=== PATIENT | male | born 1970 | race Two or more races ===

== ENCOUNTER 2023-03-24 05:46 | Inpatient (IN) | payer MEDICAID ==
[~2023-03-24] VITALS: Ht 165.1 cm; Wt 91.6 kg
[2023-03-24] MEDS: KETOROLAC TROMETH 60MG/2ML VIAL IM ONE (06:14)
[2023-03-24 07:22] LABS: Basophils # (auto) 0 10 ^3/uL (0-0.2); Basophils % (auto) 0.3 % (0.0-2.0); Eosinophils # (auto) 0.1 10 ^3/uL (0-0.8); Eosinophils % (auto) 1.7 % (0.0-7.0); Hematocrit 43.7 % (41.0-53.0); Hemoglobin 14.7 g/dL (13.5-17.5); Lymphocytes # (auto) 2.2 10 ^3/uL (0.4-5.4); Lymphocytes % (auto) 26.8 % (10.0-50.0); Mean Corpuscular Hgb Conc. 33.7 g/dL (32.0-36.0); Monocytes # (auto) 0.5 10 ^3/uL (0-1.3); Monocytes % (auto) 6.1 % (0.0-12.0); Neutrophils # (auto) 5.4 10 ^3/uL (1.6-8.6); Neutrophils % (auto) 65.1 % (37.0-80.0); Nucleated Red Blood Cells % 0.2 %; Red Blood Cells 4.46 10^6/uL (4.5-5.90); Red Cell Distribution Width 13.4 % (11.8-14.3); White Blood Cell 8.3 10^3/uL (4.4-10.8)
[2023-03-24 07:30] LABS: Alanine Aminotransferase 41 U/L (7-40); Albumin 4.2 g/dL (3.2-4.8); Alkaline Phosphatase 54 U/L (46-116); Anion Gap 9 (5-15); Aspartate Aminotransferase 21 U/L (13-40); BUN/Creatinine Ratio 8.9 (10.0-20.0); Blood Urea Nitrogen 8 mg/dL (9-23); Carbon Dioxide 23 mmol/L (20-30); Chloride 107 mmol/L (98-107); Glucose 209 mg/dL (74-106); Potassium 3.5 mmol/L (3.5-5.1); Sodium 139 mmol/L (136-145)
[2023-03-24 07:31] LABS: Bilirubin, Total 0.6 mg/dL (0.2-1.0); Total Protein 7.5 g/dL (5.7-8.2)
[2023-03-24 08:29] LABS: Urine Bacteria NONE SEEN /hpf (None Seen); Urine Blood 3+ /uL (Negative); Urine Clarity Clear (Clear); Urine Color Yellow (Yellow); Urine Hyaline Cast FEW /lpf (0 - 2); Urine Mucus FEW (None Seen); Urine Protein, UAD 1+ (Negative); Urine Specific Gravity 1.024 (1.001-1.035); Urine Urobilinogen Normal (Negative); Urine WBC 7 /hpf (0 - 3); Urine pH 5.5 (5.0-8.0)
[2023-03-24] MEDS: SODIUM CHLORIDE 0.9% 1,000 ML IV ONE ×2 (08:41→08:43)
[2023-03-24] MEDS: TAMSULOSIN HYDROCHLORIDE 0.4 MG CAP PO ONE (08:49)
[2023-03-24] MEDS: FUROSEMIDE 40 MG/4 ML VIAL IV ONE (09:10)
[2023-03-24] MEDS ORDERED: DEXTROSE (50%) 50ML SYRG IV PRN (10:30)
[2023-03-24] MEDS ORDERED: DOCUSATE SOD 100 MG CAP PO PRN (10:30)
[2023-03-24] MEDS ORDERED: KETOROLAC TROMETH 30 MG/ML 1ML VIAL IV PRN (10:30)
[2023-03-24 10:46] LABS: Hemoglobin 14.9 g/dL (13.5-17.5)
[2023-03-24] MEDS: SODIUM CHLORIDE 0.9% 1,000 ML IV SCH (10:50)
[2023-03-24] MEDS: ACCU-CHEK COMFORT CURVE STRIP VI SCH (11:32)
[2023-03-24] MEDS: InsuLIN REG 1unit/0.01ml Soln (100units/ml) SC SCH ×2 (11:34→22:00)
[2023-03-24] MEDS: cefTRIAXone 1GM/50ML D5W 50 ML IV ONE (14:19)
[2023-03-24] MEDS: TAMSULOSIN HYDROCHLORIDE 0.4 MG CAP PO SCH (18:03)
[2023-03-25 07:23] LABS: Basophils # (auto) 0 10 ^3/uL (0-0.2); Basophils % (auto) 0.4 % (0.0-2.0); Eosinophils # (auto) 0.1 10 ^3/uL (0-0.8); Eosinophils % (auto) 1.9 % (0.0-7.0); Hematocrit 39.8 % (41.0-53.0); Hemoglobin 13.5 g/dL (13.5-17.5); Lymphocytes # (auto) 2.3 10 ^3/uL (0.4-5.4); Lymphocytes % (auto) 35.2 % (10.0-50.0); Mean Corpuscular Hemoglobin 33.3 pg (28.0-32.0); Mean Corpuscular Hgb Conc. 33.8 g/dL (32.0-36.0); Mean Corpuscular Volume 98.5 fL (80.0-100.0); Monocytes # (auto) 0.6 10 ^3/uL (0-1.3); Monocytes % (auto) 9.2 % (0.0-12.0); Neutrophils # (auto) 3.5 10 ^3/uL (1.6-8.6); Neutrophils % (auto) 53.3 % (37.0-80.0); Nucleated Red Blood Cells % 0.1 %; Red Blood Cells 4.04 10^6/uL (4.5-5.90); Red Cell Distribution Width 13.6 % (11.8-14.3); White Blood Cell 6.6 10^3/uL (4.4-10.8)
[2023-03-25 07:54] LABS: Alanine Aminotransferase 35 U/L (7-40); Albumin 3.9 g/dL (3.2-4.8); Alkaline Phosphatase 50 U/L (46-116); Anion Gap 9 (5-15); Aspartate Aminotransferase 21 U/L (13-40); Bilirubin, Total 0.9 mg/dL (0.2-1.0); Blood Urea Nitrogen 9 mg/dL (9-23); Calcium 8.4 mg/dL (8.7-10.4); Carbon Dioxide 25 mmol/L (20-30); Chloride 109 mmol/L (98-107); Glucose 141 mg/dL (74-106); Potassium 3.6 mmol/L (3.5-5.1); Sodium 143 mmol/L (136-145)
[2023-03-25 07:55] LABS: Total Protein 6.9 g/dL (5.7-8.2)
[2023-03-25 08:06] VITALS: PULSE 62
[2023-03-25] MEDS: cefTRIAXone 1GM/50ML D5W 50 ML IV SCH (09:06)
[2023-03-25] MEDS: ONDANSETRON HCL 4 MG/2 ML VIAL IV PRN (11:40)
[2023-03-25] MEDS: MORPHINE SULFATE INJ 2 MG/ml SYRG IV PRN (11:43)
[2023-03-25 13:26] LABS: INR 1.04 (0.9-1.15); Prothrombin Time 10.9 sec (9.3-11.8)
[2023-03-25] MEDS: cloNIDine HCL 0.1 MG TAB PO PRN (16:48)
[2023-03-25 17:45] VITALS: BP 150/101; PULSE 74; RESP 16; TEMP 98.3; O2SAT 96
[2023-03-25 20:00] VITALS: PULSE 67; RESP 17; O2SAT 98
[2023-03-25 22:00] VITALS: BP 140/87; PULSE 67; RESP 17; TEMP 97.7; O2SAT 98
[2023-03-26 05:00] VITALS: BP 129/84; PULSE 69; RESP 20; TEMP 97.5; O2SAT 95
[2023-03-26 08:00] VITALS: PULSE 74; RESP 18; O2SAT 95
[2023-03-26 08:40] VITALS: BP 123/82; PULSE 74; RESP 18; TEMP 97.6; O2SAT 95
[2023-03-26 12:31] VITALS: BP 158/99; PULSE 75; RESP 18; TEMP 98.1; O2SAT 97
[2023-03-26 15:04] VITALS: BP 149/93; PULSE 75; RESP 18; TEMP 98.1; O2SAT 97
[2023-03-26] MEDS ORDERED: TAMS-35 PO (15:22)
[2023-03-26 16:43] VITALS: BP 128/77; PULSE 67; RESP 18; TEMP 98.1; O2SAT 98
== END 2023-03-26 17:26 | disposition home or self-care (01) | DRG 463 ==
LOC: ER 05:46 → OVERFLOW 10:23 → WEST WING 03-25 17:52
PROVIDERS: ADMIT Nurse Practitioner Family; ATTEND Nurse Practitioner Acute Care
DX: N13.6 Pyonephrosis (principal); K76.0 Fatty (change of) liver, not elsewhere classified; E11.65 Type 2 diabetes mellitus with hyperglycemia; I10 Essential (primary) hypertension; F17.210 Nicotine dependence, cigarettes, uncomplicated; K57.30 Diverticulosis of large intestine without perforation or abscess without bleeding; Z71.6 Tobacco abuse counseling; Z79.4 Long term (current) use of insulin
CPT/HCPCS: 36415; 74176; 80053; 81001; 82962; 83036; 85014; 85018; 85025; 85610; 96361; 96365; 96366; 96372; 96375; 99291; G0378; J1815; J1885; J2405